=== PATIENT | male | born 1955 | race Caucasian/White ===

== ENCOUNTER 2017-06-07 08:03 | Day surgery (SDC) | payer OTHER ==
[~2017-06-07] VITALS: Ht 185.4 cm; Wt 94.8 kg
[~2017-06-07 08:03] MED LIST: ALL DAY ALLERGY10 M1 PO; Flonase 0.05% N16 GM; Hair, Skin & N1 EACH PO; LEVO-T88 MCG PO; MIRT15ST MM
== END 2017-06-07 11:58 | disposition home or self-care (01) ==
LOC: SURS 08:03
PROVIDERS: Surgery
PROC: 0YU50JZ Supplement Right Inguinal Region with Synthetic Substitute, Open Approach (ICD-10-PCS; principal; 2017-06-07 09:30)
DX: K40.90 Unilateral inguinal hernia, without obstruction or gangrene, not specified as recurrent (principal); E03.9 Hypothyroidism, unspecified; Z79.899 Other long term (current) drug therapy
CPT/HCPCS: C1781; J0690; J1100; J1885; J2250; J2405; J3010; J7120

== ENCOUNTER 2019-07-18 17:58 | Emergency (ER) | payer OTHER ==
[~2019-07-18] VITALS: Ht 182.9 cm; Wt 81.7 kg
== END 2019-07-18 21:01 | disposition home or self-care (01) ==
LOC: ER 17:58
DX: S81.812A Laceration without foreign body, left lower leg, initial encounter (principal); Z87.891 Personal history of nicotine dependence; V29.9XXA Motorcycle rider (driver) (passenger) injured in unspecified traffic accident, initial encounter
CPT/HCPCS: 12002; 90471; 90714; 99282-25